=== PATIENT | female | born 1990 | race Caucasian/White ===

== ENCOUNTER → 2021-03-12 | Outpatient (CLI) | payer OTHER ==
[2021-03-13 09:55] LABS: Candida species (DNA Probe) Negative (NEGATIVE); G. vaginalis (DNA Probe) Positive (NEGATIVE); T. vaginalis (DNA Probe) Negative (NEGATIVE)
[2021-03-14 03:37] LABS: CHLAMYDIA TRACHOMATIS, NAA Negative (Negative)
== END | disposition home or self-care (01) ==
LOC: LAB SHORT 09:00 → LAB 09:00
PROVIDERS: Family Medicine
DX: R35.0 Frequency of micturition (principal); R30.0 Dysuria
CPT/HCPCS: 87077; 87086; 87186; 87480; 87491; 87510; 87591; 87660

== ENCOUNTER → 2021-06-11 | Outpatient (CLI) | payer OTHER | END | disposition home or self-care (01) | LOC: LAB 16:59 → LAB SHORT 16:59 | DX: L08.9 Local infection of the skin and subcutaneous tissue, unspecified (principal); D22.5 Melanocytic nevi of trunk; L30.1 Dyshidrosis [pompholyx]; L81.8 Other specified disorders of pigmentation; R21 Rash and other nonspecific skin eruption; Z71.89 Other specified counseling | CPT/HCPCS: 87070; 87077; 87147; 87186; 87205 ==

== ENCOUNTER 2022-01-10 09:59 | Emergency (ER) | payer OTHER ==
[~2022-01-10] VITALS: Ht 152.4 cm; Wt 115.2 kg
[2022-01-10] MEDS ORDERED: IBU800 MG PO (12:17)
== END 2022-01-10 12:25 | disposition home or self-care (01) ==
LOC: ER 09:59
DX: M72.2 Plantar fascial fibromatosis (principal); Z91.040 Latex allergy status
CPT/HCPCS: 73630; 93971; 99284-25; A9270

== ENCOUNTER 2022-02-26 01:39 | Emergency (ER) | payer OTHER ==
[~2022-02-26] VITALS: Ht 152.4 cm; Wt 117.9 kg
[~2022-02-26 01:39] MED LIST: IBU800 MG PO
[2022-02-26] MEDS ORDERED: Flovent Disku100 MCG INH (05:24)
[2022-02-26] MEDS ORDERED: ALBU90OI INH (05:24)
== END 2022-02-26 05:36 | disposition home or self-care (01) ==
LOC: ER 01:39
DX: J45.901 Unspecified asthma with (acute) exacerbation (principal); Z91.040 Latex allergy status; Z79.899 Other long term (current) drug therapy
CPT/HCPCS: 94640; 94664; A9270; J1100

== ENCOUNTER 2022-08-31 18:01 | Emergency (ER) | payer OTHER ==
[~2022-08-31] VITALS: Ht 152.4 cm; Wt 127.5 kg
[~2022-08-31 18:01] MED LIST changes: +ALBU90OI INH; +Flovent Disku100 MCG INH; +Prednisone20 MG PO
[2022-08-31] MEDS ORDERED: ACET500 PO (19:19)
[2022-08-31 20:13] LABS: BASOPHILS ABSOLUTE AUTO 0.08 K/mm3 (0.00-0.23); BASOPHILS PERCENT AUTO 1 % (0-2); EOSINOPHILS ABSOLUTE AUTO 0.57 K/mm3 (0.00-0.68); EOSINOPHILS PERCENT AUTO 4 % (0-6); Hematocrit 39.5 % (33.0-51.0); Hemoglobin 13.3 g/dL (11.5-16.0); IMMATURE GRAN ABSOLUTE AUTO 0.04 K/mm3 (0.00-0.10); IMMATURE GRAN PERCENT AUTO 0 % (0-1); LYMPHOCYTES ABSOLUTE AUTO 4.07 K/mm3 (0.84-5.20); LYMPHOCYTES PERCENT AUTO 31 % (21-46); MONOCYTES ABSOLUTE AUTO 1.11 K/mm3 (0.16-1.47); MONOCYTES PERCENT AUTO 9 % (4-13); Mean Corpuscular HGB 30.2 pg (26.0-34.0); Mean Corpuscular HGB Conc 33.7 g/dL (31.5-36.5); Mean Corpuscular Volume 90 fL (80-100); Mean Platelet Volume 11.8 fL (9.1-12.4); NEUTROPHILS ABSOLUTE AUTO 7.15 K/mm3 (1.96-9.15); NEUTROPHILS PERCENT AUTO 55 % (41-73); Platelet Count 227 K/mm3 (150-400); RDW Coefficient Variation 12.4 % (11.7-14.2); RDW Standard Deviation 41.1 fL (35.1-46.3); White Blood Cell Count 13.02 K/mm3 (4.00-11.30)
[2022-08-31 20:34] LABS: Albumin, Blood 3.9 g/dL (3.4-5.0); Albumin/Globulin Ratio 1.1 (0.8-1.8); Bilirubin, Total 0.4 mg/dL (0.1-1.0); C-REACTIVE PROTEIN, EXT RANGE 0.957 mg/dL (0.000-0.300); Globulin, Blood 3.6 g/dL (2.2-4.0); Potassium, Blood 4.2 mmol/L (3.5-5.5); Thyroid Stimulating Hormone 2.19 uIU/mL (0.360-4.800); Total Protein, Blood 7.5 g/dL (6.4-8.2)
[2022-08-31 21:00] VITALS: BP 112/67
[2022-08-31] MEDS ORDERED: Neurontin 300300 MG PO (21:10)
[2022-08-31] MEDS ORDERED: NAPROXEN250 M1 PO (21:10)
== END 2022-08-31 21:19 | disposition home or self-care (01) ==
LOC: ER 18:01
PROVIDERS: Emergency Medicine
DX: R20.2 Paresthesia of skin (principal); M79.10 Myalgia, unspecified site; M25.50 Pain in unspecified joint; R63.5 Abnormal weight gain; Z68.43 Body mass index [BMI] 50.0-59.9, adult; J45.909 Unspecified asthma, uncomplicated; Z91.040 Latex allergy status; Z91.048 Other nonmedicinal substance allergy status; Z79.899 Other long term (current) drug therapy
CPT/HCPCS: 80053; 82550; 84443; 84703; 85025; 86140; J1885

== ENCOUNTER 2023-07-21 02:07 | Emergency (ER) | payer OTHER ==
[~2023-07-21] VITALS: Ht 154.9 cm; Wt 124.7 kg
[~2023-07-21 02:07] MED LIST changes: +ACET500 PO; +NAPROXEN250 M1 PO; +Neurontin 300300 MG PO
[2023-07-21] MEDS ORDERED: PENVK500 PO (03:23)
[2023-07-21] MEDS ORDERED: Penicillin V Potassium 250 MG Tab PO ONE (03:25)
[2023-07-21 03:30] VITALS: BP 122/81
== END 2023-07-21 03:55 | disposition home or self-care (01) ==
LOC: ER 02:07
DX: J03.90 Acute tonsillitis, unspecified (principal); B95.0 Streptococcus, group A, as the cause of diseases classified elsewhere; Z59.89 Other problems related to housing and economic circumstances; Z75.3 Unavailability and inaccessibility of health-care facilities; Z68.43 Body mass index [BMI] 50.0-59.9, adult; J45.909 Unspecified asthma, uncomplicated; Z79.51 Long term (current) use of inhaled steroids; Z79.899 Other long term (current) drug therapy; Z88.8 Allergy status to other drugs, medicaments and biological substances; Z91.040 Latex allergy status
CPT/HCPCS: 87430; 99283; A9270

== ENCOUNTER 2023-09-16 20:18 | Emergency (ER) | payer OTHER ==
[~2023-09-16] VITALS: Ht 154.9 cm; Wt 119.3 kg
[~2023-09-16 20:18] MED LIST changes: +PENVK500 PO
[2023-09-16 20:22] VITALS: BP 142/88
[2023-09-16] MEDS ORDERED: Ipratropium/Albuterol SulF 2.5-0.5MG/3 ML Amp INH PRN (20:25)
[2023-09-16] MEDS ORDERED: Albuterol 2.5 MG/3 ML VIAL INH SCH (21:05)
[2023-09-16] MEDS ORDERED: Doxycycline Hyclate 100 MG TAB PO ONE (21:35)
[2023-09-16] MEDS ORDERED: RX Prepack Albuterol 1 PREPACK/6.7 GM INH UD ONE (21:35)
[2023-09-16] MEDS ORDERED: DOXY100 PO (21:39)
[2023-09-16] MEDS ORDERED: Dexamethasone Sod Phos 10 MG/ML 1ML VIAL PO ONE (21:50)
== END 2023-09-16 21:59 | disposition home or self-care (01) ==
LOC: ER 20:18
DX: J45.901 Unspecified asthma with (acute) exacerbation (principal); J18.9 Pneumonia, unspecified organism; Z88.1 Allergy status to other antibiotic agents; Z91.011 Allergy to milk products; Z91.018 Allergy to other foods; Z91.040 Latex allergy status; Z79.899 Other long term (current) drug therapy
CPT/HCPCS: 71046; 94640; 94664; 99285-25; A9270; J1100

== ENCOUNTER → 2023-09-27 | Outpatient (CLI) | payer OTHER ==
[~2023-09-27] MED LIST changes: +DOXY100 PO
[2023-09-27 09:36] LABS: BASOPHILS PERCENT AUTO 1 % (0-2); EOSINOPHILS PERCENT AUTO 10 % (0-6); Hematocrit 41.2 % (33.0-51.0); Hemoglobin 13.5 g/dL (11.5-16.0); IMMATURE GRAN ABSOLUTE AUTO 0.04 K/mm3 (0.00-0.10); IMMATURE GRAN PERCENT AUTO 0 % (0-1); LYMPHOCYTES ABSOLUTE AUTO 2.26 K/mm3 (0.84-5.20); LYMPHOCYTES PERCENT AUTO 23 % (21-46); MONOCYTES ABSOLUTE AUTO 0.74 K/mm3 (0.16-1.47); MONOCYTES PERCENT AUTO 7 % (4-13); Mean Corpuscular HGB Conc 32.8 g/dL (31.5-36.5); Mean Corpuscular Volume 92 fL (80-100); Mean Platelet Volume 11.9 fL (9.1-12.4); NEUTROPHILS ABSOLUTE AUTO 5.89 K/mm3 (1.96-9.15); NEUTROPHILS PERCENT AUTO 59 % (41-73); Platelet Count 217 K/mm3 (150-400); RDW Coefficient Variation 12.7 % (11.7-14.2); RDW Standard Deviation 42.5 fL (35.1-46.3); White Blood Cell Count 10.03 K/mm3 (4.00-11.30)
[2023-09-27 09:57] LABS: Albumin, Blood 3.8 g/dL (3.4-5.0); Albumin/Globulin Ratio 1.1 (0.8-1.8); Bilirubin, Total 0.6 mg/dL (0.1-1.0); Bun/Creatinine Ratio 18.2 (12.0-20.0); Calcium, Blood 8.8 mg/dL (8.5-10.1); Creatinine, Blood 0.94 mg/dL (0.40-1.00); Globulin, Blood 3.6 g/dL (2.2-4.0); Potassium, Blood 4.1 mmol/L (3.5-5.5); Total Protein, Blood 7.4 g/dL (6.4-8.2)
== END | disposition home or self-care (01) ==
LOC: LAB SHORT 08:23 → LAB 08:23
PROVIDERS: Nurse Practitioner Family
DX: R53.81 Other malaise (principal); R73.03 Prediabetes; G57.93 Unspecified mononeuropathy of bilateral lower limbs
CPT/HCPCS: 80053; 83036; 85025

== ENCOUNTER → 2023-10-20 | Outpatient (CLI) | payer OTHER | LOC: LAB 16:20 → LAB SHORT 16:20 | DX: R30.0 Dysuria (principal) | CPT/HCPCS: 87077; 87086; 87186 ==

== ENCOUNTER 2024-04-06 19:51 | Emergency (ER) | payer OTHER ==
[~2024-04-06] VITALS: Ht 152.4 cm; Wt 119.8 kg
[2024-04-06 20:12] VITALS: BP 161/100
[2024-04-06] MEDS ORDERED: Ketorolac Tromethamine 30mg Vial IV ONE (20:15)
[2024-04-06] MEDS ORDERED: Prochlorperazine Edisylate 10 mg Vial IV ONE (20:15)
[2024-04-06] MEDS ORDERED: DiphenhydrAMINE HCl 50 MG/ML 1ML Vial IV ONE (20:15)
== END 2024-04-06 21:54 | disposition home or self-care (01) ==
LOC: ER 19:51
DX: M25.562 Pain in left knee (principal); G89.29 Other chronic pain; R51.9 Headache, unspecified; Z91.040 Latex allergy status; Z91.011 Allergy to milk products; Z88.8 Allergy status to other drugs, medicaments and biological substances; Z91.018 Allergy to other foods; Z79.899 Other long term (current) drug therapy; J45.909 Unspecified asthma, uncomplicated
CPT/HCPCS: 73562-LT; 96374; 96375; 99283-25; J0780; J1200; J1885

== ENCOUNTER 2024-12-09 11:34 | Emergency (ER) | payer OTHER ==
[~2024-12-09] VITALS: Ht 152.4 cm; Wt 124.3 kg
[2024-12-09 12:35] LABS: BASOPHILS ABSOLUTE AUTO 0.06 K/mm3 (0.00-0.23); BASOPHILS PERCENT AUTO 1 % (0-2); EOSINOPHILS ABSOLUTE AUTO 0.18 K/mm3 (0.00-0.68); EOSINOPHILS PERCENT AUTO 2 % (0-6); Hematocrit 40.4 % (33.0-51.0); Hemoglobin 13.3 g/dL (11.5-16.0); IMMATURE GRAN ABSOLUTE AUTO 0.05 K/mm3 (0.00-0.10); IMMATURE GRAN PERCENT AUTO 0 % (0-1); LYMPHOCYTES ABSOLUTE AUTO 2.76 K/mm3 (0.84-5.20); LYMPHOCYTES PERCENT AUTO 24 % (21-46); MONOCYTES ABSOLUTE AUTO 0.77 K/mm3 (0.16-1.47); MONOCYTES PERCENT AUTO 7 % (4-13); Mean Corpuscular HGB Conc 32.9 g/dL (31.5-36.5); Mean Corpuscular Volume 90 fL (80-100); NEUTROPHILS ABSOLUTE AUTO 7.93 K/mm3 (1.96-9.15); NEUTROPHILS PERCENT AUTO 68 % (41-73); NRBC ABSOLUTE 0.00 K/mm3 (0.00-0.02); NRBC Auto 0.0 /100 WBC (0.0-0.2); Platelet Count 253 K/mm3 (150-400); RDW Coefficient Variation 12.6 % (11.7-14.2); RDW Standard Deviation 41.8 fL (35.1-46.3)
[2024-12-09 12:59] LABS: Alanine Aminotransfer (ALT/SGP 31.0 U/L (12-78); Albumin, Blood 3.8 g/dL (3.4-5.0); Albumin/Globulin Ratio 1.0 (0.8-1.8); Anion Gap 7.0 mmol/L (3-11); Aspartate Aminotrans (AST/SGOT 19.0 U/L (12-37); Bilirubin, Total 0.3 mg/dL (0.1-1.0); Blood Urea Nitrogen 17.0 mg/dL (8-24); CO2, Blood 26.0 mmol/L (21-32); Calcium, Blood 8.8 mg/dL (8.5-10.1); Chloride, Blood 106.0 mmol/L (98-108); Creatinine, Blood 0.81 mg/dL (0.40-1.00); Globulin, Blood 3.7 g/dL (2.2-4.0); Glucose, Blood 101.0 mg/dL (70-99); Potassium, Blood 3.8 mmol/L (3.5-5.5); Sodium, Blood 135.0 mmol/L (136-145); Total Protein, Blood 7.5 g/dL (6.4-8.2)
[2024-12-09 13:45] VITALS: BP 155/96
[2024-12-09] MEDS ORDERED: Ondansetron HCl 2 MG / ML 2ML Vial IV ONE (15:15)
[2024-12-09] MEDS ORDERED: NS 1,000 ML IV SCH (15:15)
[2024-12-09] MEDS ORDERED: FentaNYL Citrate 50 MCG/ML 2 ML Injection IV PRN (15:15)
[2024-12-09] MEDS ORDERED: PAIN RELIEF1 EACH TOP (17:10)
[2024-12-09] MEDS ORDERED: IBUP800 PO (17:10)
[2024-12-09] MEDS ORDERED: Lidocaine 4% 1 Patch TOP ONE (17:15)
== END 2024-12-09 17:23 | disposition home or self-care (01) ==
LOC: ER 11:34
PROVIDERS: Emergency Medicine
DX: M94.0 Chondrocostal junction syndrome [Tietze] (principal); I10 Essential (primary) hypertension; K76.0 Fatty (change of) liver, not elsewhere classified; J45.909 Unspecified asthma, uncomplicated; E66.01 Morbid (severe) obesity due to excess calories; Z68.43 Body mass index [BMI] 50.0-59.9, adult; Z91.011 Allergy to milk products; Z91.018 Allergy to other foods; Z91.040 Latex allergy status; Z88.3 Allergy status to other anti-infective agents; Z88.8 Allergy status to other drugs, medicaments and biological substances; Z79.899 Other long term (current) drug therapy
CPT/HCPCS: 71046; 76705; 80053; 83690; 84484; 85025; 93005; 93010; 96374; 96375; 99284-25; J2405; J3010; J7030

== ENCOUNTER 2024-12-20 19:22 | Emergency (ER) | payer OTHER ==
[~2024-12-20] VITALS: Ht 160 cm; Wt 132.4 kg
[~2024-12-20 19:22] MED LIST changes: +IBUP800 PO; +PAIN RELIEF1 EACH TOP
[2024-12-20 19:28] VITALS: BP 169/95
[2024-12-20] MEDS ORDERED: SULTRIDS PO (22:23)
[2024-12-20] MEDS ORDERED: CEPH500 PO (22:23)
[2024-12-20] MEDS ORDERED: Trimethoprim/Sulfamethoxazole DS Tab PO ONE (22:25)
== END 2024-12-21 07:06 | disposition home or self-care (01) ==
LOC: ER 19:22
DX: L03.311 Cellulitis of abdominal wall (principal); J45.909 Unspecified asthma, uncomplicated
CPT/HCPCS: 99283; A9270

== ENCOUNTER → 2025-03-03 | Outpatient (CLI) | payer OTHER ==
[~2025-03-03] MED LIST changes: +CEPH500 PO; +SULTRIDS PO
== END ==
LOC: LAB SHORT 11:10 → LAB 11:10
DX: N39.0 Urinary tract infection, site not specified (principal)
CPT/HCPCS: 87077; 87086; 87186